=== PATIENT | female | born 1980 | race Caucasian/White ===

== ENCOUNTER → 2021-11-15 11:23 | Outpatient (POV) | payer BC, SELFPAY ==
[2021-11-15 12:10] VITALS: BP 190/87; PULSE 102; RESP 18; TEMP 37.1; O2SAT 97; BMI 34.4
--- NOTE | 2021-11-15 14:52 | HMH.PMCON ---
Assessment and Plan (1) Degenerative joint disease (DJD) of lumbar spine Status: Acute Category: Medical Code(s): M47.816 - Spondylosis without myelopathy or radiculopathy, lumbar region (2) Lumbar radiculopathy Status: Acute Category: Medical Code(s): M54.16 - Radiculopathy, lumbar region (3) Spinal stenosis, lumbar region with neurogenic claudication Status: Acute Category: Medical Code(s): M48.062 - Spinal stenosis, lumbar region with neurogenic claudication (4) Facet arthropathy Status: Acute Category: Medical Code(s): M47.819 - Spondylosis without myelopathy or radiculopathy, site unspecified - Assessment and plan all Dx Assessment and Plan for all problems:: Imaging: Lumbar MRI 10/25/21 shows: 1. Dominant finding is L4-L5 broad-based predominantly central/right olivia disc protrusion indenting the thecal sac and encroaching on the proximal right lateral recess, effacing the L5 right descending nerve. This finding provides a mechanism for the right lower extremity symptoms. Degenerative facet arthropathy produces mild by foraminal stenosis, contributing to the severe multifactorial central canal stenosis. 2. L3-L4 broad-based concentric disc bulging. Facet arthropathy contributing to mild central canal stenosis when combined with prominent ligamentum flavum. 3. L5-S1 mild to moderate multifactorial central canal stenosis. Degenerative facet arthropathy Plan: Patient presents today with worsening low back pain that radiates to bilateral lower extremities, right greater than the left. Denies any loss of bowel or bladder functions. Denies any recent traumas or falls. From her lumbar MRI, there is a severe central canal stenosis at L4-L5 that is from the L4-L5 disc protrusion and from ligamentum flavum. Patient has tried and failed conservative therapies such as oral medication, chiropractic adjustments, and home exercises. We will schedule the patient for a lumbar epidural steroid injection at L4-L5. Risk and benefits have been discussed with the patient. Patient would like to proceed with this procedure. Patient is not on any blood thinners. I discussed with the patient that due to her MRI, I would like to refer her to neurosurgery for further evaluation. I will refer the patient to Dr. Kerr in [facility]. If the pt is deemed a non-surgical candidate, patient might be a good candidate for SCS vs Vertiflex vs MILD. I will also start this patient on gabapentin 100 mg 3 times a day for her radicular pains. She does note that she is sensitive to medications. I recommended the patient take 1 tablet at night first and she can titrate up to 2-3 times a day after 3 to 4 days. Patient has been instructed to contact the clinic with any concerns before the next appointment. Dr. Multani has reviewed this note and agrees with this plan of care. This note was dictated using voice recognition software and make contain errors or omissions. HPI - Data of Consult Patient: new to practice Consult date: 11/15/21 Requesting Physician: CORTEZ Echeverria - Consult Narrative Reason for consult: low back pain History of present illness: Ms. Orantes is a 41 year old female who presents today as a new patient. Patient is a self-referral. Patient presents today with worsening low back pain that radiates to BLE, R > L. This has been going on for about 6 months now. Denies any traumas or falls. Denies any loss of bowel and bladder functions. This is worse with any lumbar flexion, extension, and rotation. She cannot tolerate any prolonged activity such as standing and walking. Sitting down helps with her pain. Patient states that her legs feel heavy as she walks for long peers of time. Initially, she saw urgent care for low back pain and was then referred [facility] for further evaluation. She was started on Tizanidine 2mg QHS to help her sleep but her back pain has gotten so bad that it is waking her up at night.
== END ==
PROVIDERS: Visit Provider Student in an Organized Health Care Education/Training Program
DX: M51.16 Intervertebral disc disorders with radiculopathy, lumbar region (principal); M48.062 Spinal stenosis, lumbar region with neurogenic claudication; M47.819 Spondylosis without myelopathy or radiculopathy, site unspecified
CPT/HCPCS: 99202; G0463

== ENCOUNTER 2021-12-10 09:12 | Day surgery (SDC) | payer BC, SELFPAY ==
[2021-12-10 09:25] VITALS: BP 139/95; PULSE 82; RESP 18; TEMP 36.7; O2SAT 99; BMI 75.9
[2021-12-10 10:17] VITALS: BP 125/77; PULSE 88; RESP 18
[2021-12-10 10:22] VITALS: BP 126/78; PULSE 88; RESP 18
--- NOTE | 2021-12-10 10:33 | HMH.PMPROC ---
- Procedure Date: 12/10/21 Time: 10:34 Anesthesiologist:: Rachid Multani MD Complications:: None Pre-procedure Diagnosis:: Degenerative disc disease of lumbar spine with lumbar radiculopathy symptoms and severe spinal stenosis at L4-L5 with bulging disc and prominent ligamentum flavum hypertrophy Post-procedure Diagnosis:: Same Indications for Procedure:: This patient is a pleasant 41-year-old white female who presents with increasing back pain and right leg pain. She has severe stenosis at L4-L5 with herniated disc effacing the thecal sac along with ligamentum flavum hypertrophy. We will do a lumbar epidural steroid injection today to see if this helps with her symptoms. We will also send her to Dr. Ibanez for neurosurgical evaluation. Procedure Details:: Informed consent was obtained and the risk and benefits of the procedure was explained to the patient. The patient was taken to the procedure room. The patient was placed prone on the procedure table. The patient was prepped and draped in sterile fashion. C-arm fluoroscopy was used to view the lumbar spine. Skin and subcutaneous tissues were anesthetized using lidocaine. I placed an 18-gauge epidural needle and advanced into the L4-L5 interspace using fluoroscopic guidance and [id number] to air. After confirmation of needle placement in the epidural space with dye I injected 2 mL of lidocaine 1.5% with Depo-Medrol 80 mg. Patient tolerated the procedure well with no complications. Plan and Disposition:: We will follow-up with her in 2 weeks. Will reevaluate symptoms at that time. We will also follow-up on referral to Dr. Ibanez for neurosurgical evaluation.
[2021-12-10 10:37] VITALS: BP 146/90; PULSE 83; RESP 18; O2SAT 98
== END 2021-12-10 10:38 | disposition home or self-care (01) ==
LOC: SC.PAINP 09:16
PROVIDERS: PCP Nurse Practitioner Family; Visit Provider Anesthesiology
DX: M51.16 Intervertebral disc disorders with radiculopathy, lumbar region (principal); M48.061 Spinal stenosis, lumbar region without neurogenic claudication; M24.28 Disorder of ligament, vertebrae
CPT/HCPCS: 62323; J1040; Q9966

== ENCOUNTER → 2021-12-20 09:52 | Outpatient (POV) | payer BC, SELFPAY ==
[2021-12-20 10:05] VITALS: BP 143/98; PULSE 91; RESP 20; TEMP 36.8; O2SAT 100; BMI 34.4
--- NOTE | 2021-12-20 10:17 | HMH.PAINSOAP ---
[facility] Pain Management SOAP Note Subjective:: Patient is a very pleasant 41-year-old female who presents today for follow-up. We are currently treating the patient for degenerative disc disease of lumbar spine with lumbar radiculopathy symptoms, severe spinal stenosis at L4-L5 with bulging disc and prominent ligament flavum hypertrophy. We have done injective therapy on her in the past. On December 10, 2021 she did have a LESI at L4-L5. Patient states she had no improvement with this injection. She presents today for a rash at her midline low back area. She thinks it may be from the ChloraPrep used during the procedure. She complains of severe itching today. Itching is only located at the area of the rash and she has tried fqie-eja-mexzstt hydrocortisone cream with minimal relief. Patient states she has a history of sensitive skin. she rates her pain today as 6 out of 10. She states the pain is primarily into her right leg and hip. She describes the pain as an aching, tingling, occasionally sharp sensation. It does radiate all the way to her right foot. She currently takes gabapentin 100 mg 3 times a day. She states she is unsure whether or not if this medication is helping or not. She does state that she is able to sleep better. Patient has also seen a chiropractor in the past. She has also tried muscle relaxers minimal relief. Patient's Marv is [id number]. It has been reviewed and appropriate. Patient was sent for a referral to neurosurgery to Dr. Ibanez last Monday. Review of Systems: General: No recent weight changes, no fever, no sleep disturbances Respiratory: No cough, no shortness of air, no recurring pulmonary infections Cardiovascular/peripheral vascular: No chest pain, no palpitations, no edema, no shortness of breath Gastrointestinal: No new onset incontinence, normal bowel movements reported Genitourinary: No new onset incontinence Musculoskeletal: Low back pain, right leg pain, itchy low back rash Psychiatric: [Normal mood/affect] Neurological: [Denies weakness in extremities], [denies balance issues] Objective:: Physical Exam: General: Alert and oriented x3, no acute distress, pleasant and cooperative Lungs: Respirations even and unlabored, symmetrical chest expansion Eyes: PERRL Musculoskeletal: Flexion and extension of lumbar [spine] somewhat guarded secondary to pain, [antalgic gait noted], red raised rash at lumbar midline Neurological: Speech clear, no gross sensory deficit Assessment:: Degenerative disc disease of lumbar spine with lumbar radiculopathy symptoms, severe spinal stenosis at L4-L5 with bulging disc, prominent ligament flavum hypertrophy Plan:: We will prescribe the patient today Vistaril 25 mg twice daily for itching. I have told her to continue using the hydrocortisone cream along with this medication for the rash. With patient's continued low back and right leg pain I will prescribe the patient diclofenac 75 mg twice daily and increase the patient's gabapentin to 300 mg 3 times a day. Patient will follow-up in clinic in 2 weeks. Patient has been instructed to contact the clinic with any concerns before the next appointment. Dr. Multani has reviewed this note and agrees with this plan of care. This note was dictated using voice recognition software and make contain errors or omissions. [facility] History I have reviewed the patient's past medical history: Yes Medical History: Denies:: Cancer, Diabetes Mellitus Type 1, Diabetes Mellitus Type 2, MRSA *Have you ever received a pneumonia vaccine?: No *Have you received a flu vaccine this season?: Yes Laterality Cases: Left: ACL Repair Other Surgeries: Yes: Other (WISDOM TEETH) Amputation: No Fractures: No - *Social History Smoking Status: Never smoker Alcohol Intake: never *Occupational Status:: other Housing: house *Travel in the last 8 weeks: Inside the [place] Family Hx:: No significant family history
== END ==
PROVIDERS: Visit Provider Student in an Organized Health Care Education/Training Program
DX: M51.16 Intervertebral disc disorders with radiculopathy, lumbar region (principal); M48.061 Spinal stenosis, lumbar region without neurogenic claudication; M24.20 Disorder of ligament, unspecified site; T80.89XA Other complications following infusion, transfusion and therapeutic injection, initial encounter; R21 Rash and other nonspecific skin eruption
CPT/HCPCS: 99212; G0463

== ENCOUNTER → 2022-01-03 14:09 | Outpatient (POV) | payer BC, SELFPAY ==
[2022-01-03 14:19] VITALS: BP 155/98; PULSE 94; RESP 18; TEMP 36.9; O2SAT 98; BMI 34.4
--- NOTE | 2022-01-03 15:29 | P.CONS_ITS ---
[facility] Pain Management SOAP Note Subjective:: Patient is a pleasant 41-year-old female who presents today for follow-up. Patient is current being treated for degenerative disc disease of the lumbar spine with lumbar radiculopathy symptoms, lumbar facet arthropathy, spinal stenosis with neurogenic claudication. We have been managing this patient with gabapentin 300 mg 3 times a day and diclofenac 75 mg twice a day. Denies any side effects from these medications. Patient states that the medications are somewhat managing her pain. We previously did a lumbar epidural steroid injection with the patient. She had significant reaction from the ChloraPrep. We started this patient on Vistaril which seems to help her itchiness. Today, patient states that she is doing okay with the gabapentin but feels like she did something on her back yesterday that seem to have aggravated it. She rates her pain today as 9 out of 10. [facility] [id number] with an active morphine equivalent of 0. She is scheduled to see Dr. Ibanez on January 27, 2022. Review of Systems: General: No recent weight changes, no fever, no sleep disturbances Respiratory: No cough, no shortness of air, no recurring pulmonary infections Cardiovascular/peripheral vascular: No chest pain, no palpitations, no edema, no shortness of breath Gastrointestinal: No new onset incontinence, normal bowel movements reported Genitourinary: No new onset incontinence Musculoskeletal: Low back pain Psychiatric: [Normal mood/affect] Neurological: [Denies weakness in extremities], [denies balance issues] Objective:: Physical Exam: General: Alert and oriented x3, no acute distress, pleasant and cooperative Lungs: Respirations even and unlabored, symmetrical chest expansion Eyes: PERRL Musculoskeletal: Flexion and extension of lumbar [spine] somewhat guarded secondary to pain, [antalgic gait noted] Neurological: Speech clear, no gross sensory deficit Assessment:: Degenerative disease of lumbar spine with lumbar radiculopathy symptoms, lumbar facet arthropathy, spinal stenosis with neurogenic claudication Plan:: Patient continues to do okay with the gabapentin and diclofenac. Patient still has refills until January 20. We will see this patient back for medication refills before January 20. Patient has been having acute pain since yesterday. I will start this patient on prednisone 20 mg twice a day for 5 days. Patient has been instructed to contact the clinic with any concerns before the next appointment. Dr. Multani has reviewed this note and agrees with this plan of care. This note was dictated using voice recognition software and make contain errors or omissions. [facility] History Medical History: Denies:: Cancer, Diabetes Mellitus Type 1, Diabetes Mellitus Type 2, MRSA *Have you ever received a pneumonia vaccine?: No *Have you received a flu vaccine this season?: Yes Laterality Cases: Left: ACL Repair Other Surgeries: Yes: Other (WISDOM TEETH) Amputation: No Fractures: No - *Social History Smoking Status: Never smoker Alcohol Intake: never *Occupational Status:: other Housing: house *Travel in the last 8 weeks: None Family Hx:: No significant family history
== END ==
PROVIDERS: PCP Nurse Practitioner Family; Visit Provider Student in an Organized Health Care Education/Training Program
DX: M51.16 Intervertebral disc disorders with radiculopathy, lumbar region (principal); M47.26 Other spondylosis with radiculopathy, lumbar region; M48.062 Spinal stenosis, lumbar region with neurogenic claudication
CPT/HCPCS: 99212; G0463

== ENCOUNTER → 2022-01-17 08:16 | Outpatient (POV) | payer BC, SELFPAY ==
[2022-01-17 08:32] VITALS: BP 135/65; PULSE 78; RESP 18; O2SAT 100; BMI 35.9
--- NOTE | 2022-01-17 08:39 | HMH.PAINSOAP ---
[facility] Pain Management SOAP Note Subjective:: Patient is a pleasant 41-year-old female who is here for medication refill and follow-up. Patient is currently being treated for degenerative disc disease of lumbar spine with lumbar radiculopathy symptoms, lumbar facet arthropathy, spinal stenosis with neurogenic claudication. Patient is being managed with gabapentin 300 mg 3 times a day and diclofenac 75 mg twice a day. Patient denies any side effects from the medications. Patient denies any changes to the location and type of pain. Patient states that this is adequately helping manage their pain. Rates pain as 4 out of 10. [facility] number [id number] with an active morphine equivalent 0. Drug screens have been reviewed and appropriate. We previously tried a lumbar epidural steroid injection with this patient however, this did not provide significant relief. She also developed a reaction from the ChloraPrep and we had to give her some Vistaril which seemed to work. She is scheduled to see Dr. Ibanez on January 27, 2022 for neurosurgical evaluation. Review of Systems: General: No recent weight changes, no fever, no sleep disturbances Respiratory: No cough, no shortness of air, no recurring pulmonary infections Cardiovascular/peripheral vascular: No chest pain, no palpitations, no edema, no shortness of breath Gastrointestinal: No new onset incontinence, normal bowel movements reported Genitourinary: No new onset incontinence Musculoskeletal: Low back pain Psychiatric: [Normal mood/affect] Neurological: [Denies weakness in extremities], [denies balance issues] Objective:: Physical Exam: General: Alert and oriented x3, no acute distress, pleasant and cooperative Lungs: Respirations even and unlabored, symmetrical chest expansion Eyes: PERRL Musculoskeletal: Flexion and extension of lumbar [spine] somewhat guarded secondary to pain, [antalgic gait noted] Neurological: Speech clear, no gross sensory deficit Assessment:: Degenerative disc disease of lumbar spine with lumbar radiculopathy symptoms, lumbar facet arthropathy, spinal stenosis with neurogenic claudication Plan:: We will continue the patient's gabapentin 300 mg 3 times a day and diclofenac 75 mg twice a day. We will provide the patient with 3 months of refills. We would like to see the patient back in 3 months for follow-up and reevaluation of chronic pain syndrome. Patient has been advised of risks of oversedation with the prescribed medication. Narcan has been offered to the patient in the event of oversedation. Patient has been advised that a family member should also be educated regarding administration of Narcan. Patient has been instructed to contact the clinic with any concerns before the next appointment. Dr. Multani has reviewed this note and agrees with this plan of care. This note was dictated using voice recognition software and make contain errors or omissions. [facility] History Medical History: Denies:: Cancer, Diabetes Mellitus Type 1, Diabetes Mellitus Type 2, MRSA *Have you ever received a pneumonia vaccine?: No *Have you received a flu vaccine this season?: Yes Laterality Cases: Left: ACL Repair Other Surgeries: Yes: Other (WISDOM TEETH) Amputation: No Fractures: No - *Social History Smoking Status: Never smoker Alcohol Intake: never *Occupational Status:: other Housing: house *Travel in the last 8 weeks: None Family Hx:: No significant family history
== END ==
PROVIDERS: Visit Provider Nurse Practitioner Family
DX: M51.16 Intervertebral disc disorders with radiculopathy, lumbar region (principal); M47.26 Other spondylosis with radiculopathy, lumbar region; M48.062 Spinal stenosis, lumbar region with neurogenic claudication
CPT/HCPCS: 99212; G0463

== ENCOUNTER → 2022-01-17 08:42 | Outpatient (CLI) | payer BC, SELFPAY ==
[2022-01-17 09:23] LABS: Amphetamine/Metha Screen,Urine Negative ng/ml (<1000)
[2022-01-17 09:24] LABS: Barbiturates Screen,Urine Negative ng/ml (<200); Benzodiazepines Screen,Urine Negative ng/ml (<200)
[2022-01-17 09:25] LABS: Cannabinoid Screen,Urine Negative ng/ml (<50)
[2022-01-17 09:26] LABS: Cocaine Screen,Urine Negative ng/ml (<300); Methadone Screen,Urine Negative ng/ml (<300)
[2022-01-17 09:27] LABS: Opiate Screen,Urine Negative ng/ml (<300)
[2022-01-17 09:28] LABS: Phencyclidine Screen,Urine Negative ng/ml (<25)
[2022-01-24 19:09] LABS: Opiates Negative (Cutoff=100)
== END ==
PROVIDERS: PCP Nurse Practitioner Family; Visit Provider Student in an Organized Health Care Education/Training Program
DX: Z79.891 Long term (current) use of opiate analgesic (principal)
CPT/HCPCS: 80305; 80361; 80365; G0480